=== PATIENT | female | born 1950 | race Caucasian/White ===

== ENCOUNTER 2020-09-30 06:01 | Day surgery (SDC) | payer MEDICARE ==
[~2020-09-30] VITALS: Ht 170.2 cm; Wt 81.5 kg
[2020-09-30 07:20] VITALS: BP 147/81
[2020-09-30] MEDS ORDERED: FLUT1BLS3 IH (07:29)
[2020-09-30] MEDS ORDERED: SERT50TA PO (07:29)
[2020-09-30] MEDS ORDERED: ATOR20TA37 PO (07:29)
[2020-09-30] MEDS ORDERED: SODIUM CHLORIDE 0.9% 1,000 ML IV SCH (07:30)
[2020-09-30] MEDS ORDERED: MIDAZOLAM 1 MG/ML, 5ML ONE (08:43)
[2020-09-30] MEDS ORDERED: NALOXONE 1 MG/ML, 2ML ONE (08:43)
[2020-09-30] MEDS ORDERED: FENTANYL PF 100 MCG/2ML ONE (08:43)
[2020-09-30] MEDS ORDERED: FLUMAZENIL 0.1 MG/1 ML, 5ML ONE (08:43)
== END 2020-09-30 14:20 | disposition home or self-care (01) ==
LOC: OUT 06:01
PROVIDERS: ATTEND Surgery
DX: C34.91 Malignant neoplasm of unspecified part of right bronchus or lung (principal); J85.2 Abscess of lung without pneumonia; J43.9 Emphysema, unspecified; I10 Essential (primary) hypertension; E78.5 Hyperlipidemia, unspecified; Z98.890 Other specified postprocedural states; Z79.899 Other long term (current) drug therapy; Z87.891 Personal history of nicotine dependence; Z90.49 Acquired absence of other specified parts of digestive tract
CPT/HCPCS: 32408; 71045; 88305; 88333; 99156; 99157; J2250; J3010; J7030; 77012; J2310

== ENCOUNTER → 2020-10-22 | Outpatient (CLI) | payer MEDICARE ==
[~2020-10-22] MED LIST: ATOR20TA37 PO; FLUT1BLS3 IH; GADOTERATE 10 MMOL/20ML SYR ONE; SERT50TA PO
== END | disposition home or self-care (01) ==
LOC: RAD 09:53
PROVIDERS: ATTEND Pathology Hematology
DX: C34.2 Malignant neoplasm of middle lobe, bronchus or lung (principal)
CPT/HCPCS: 70553; A9575

== ENCOUNTER → 2020-10-23 | Outpatient (CLI) | payer MEDICARE ==
[~2020-10-23] MED LIST changes: -GADOTERATE 10 MMOL/20ML SYR ONE
== END | disposition home or self-care (01) ==
LOC: PETCFH 09:47
PROVIDERS: ATTEND Surgery
DX: C34.01 Malignant neoplasm of right main bronchus (principal); D49.1 Neoplasm of unspecified behavior of respiratory system; R91.8 Other nonspecific abnormal finding of lung field
CPT/HCPCS: 78815; A9552

== ENCOUNTER 2020-11-05 07:57 | Day surgery (SDC) | payer MEDICARE ==
[~2020-11-05] VITALS: Ht 170.2 cm; Wt 78.2 kg
[2020-11-05 08:52] VITALS: BP 135/67
[2020-11-05] MEDS ORDERED: CEFAZOLIN PMX 1GM/50ML 50 ML IV ONE (09:00)
[2020-11-05] MEDS ORDERED: SODIUM CHLORIDE 0.9% 1,000 ML IV SCH (09:00)
[2020-11-05] MEDS ORDERED: MIDAZOLAM 1 MG/ML, 5ML ONE (09:54)
[2020-11-05] MEDS ORDERED: FENTANYL PF 100 MCG/2ML ONE (09:54)
[2020-11-05] MEDS ORDERED: FLUMAZENIL 0.1 MG/1 ML, 5ML ONE (09:54)
[2020-11-05] MEDS ORDERED: NALOXONE 1 MG/ML, 2ML ONE (09:55)
[2020-11-05] MEDS ORDERED: LIDOCAINE 1%, 10ML ONE (10:10)
[2020-11-05] MEDS ORDERED: LIDOCAINE 1%, 20ML ONE (10:10)
== END 2020-11-05 12:20 | disposition home or self-care (01) ==
LOC: OUT 07:57
PROVIDERS: ATTEND Internal Medicine Hematology & Oncology
DX: C34.2 Malignant neoplasm of middle lobe, bronchus or lung (principal); C7A.029 Malignant carcinoid tumor of the large intestine, unspecified portion; J44.9 Chronic obstructive pulmonary disease, unspecified; I10 Essential (primary) hypertension; E78.5 Hyperlipidemia, unspecified; F32.9 Major depressive disorder, single episode, unspecified; Z87.891 Personal history of nicotine dependence; Z99.81 Dependence on supplemental oxygen
CPT/HCPCS: 36561; 76937; 77001; 99156; 99157; C1788; J0690; J1642; J2250; J3010; J7030; J2310